=== PATIENT | female | born 1950 | race Caucasian/White ===

== ENCOUNTER 2018-05-27 06:27 | Emergency (ER) | payer OTHER ==
[~2018-05-27] VITALS: Ht 162.6 cm; Wt 65.8 kg
[~2018-05-27 06:27] MED LIST: ANTIVERT25 MG PO; VITAMIN D2000 UNIT PO; ZOFRAN4 MG PO
[2018-05-27 07:59] VITALS: BP 134/84
== END 2018-05-27 08:00 | disposition home or self-care (01) ==
LOC: EME 06:27
DX: S90.31XA Contusion of right foot, initial encounter (principal); S92.414A Nondisplaced fracture of proximal phalanx of right great toe, initial encounter for closed fracture; W20.8XXA Other cause of strike by thrown, projected or falling object, initial encounter
CPT/HCPCS: 73630; 99281; 99284